=== PATIENT | female | born 1955 | race Caucasian/White ===

== ENCOUNTER 2017-12-06 08:00 | Outpatient (CLI) | payer BC, OTHER | END 2017-12-06 08:01 | disposition home or self-care (01) | LOC: LAB.R 08:00 | PROVIDERS: ATTEND Obstetrics & Gynecology | DX: L90.0 Lichen sclerosus et atrophicus (principal) | CPT/HCPCS: 87480; 87510; 87660 ==

== ENCOUNTER 2018-02-11 08:00 | Outpatient (CLI) | payer BC, OTHER | END 2018-02-11 08:01 | disposition home or self-care (01) | LOC: LAB.R 08:00 | PROVIDERS: ATTEND Obstetrics & Gynecology | DX: N76.3 Subacute and chronic vulvitis (principal) | CPT/HCPCS: 87480; 87510; 87660 ==

== ENCOUNTER 2020-11-18 16:56 | Outpatient (CLI) | payer MEDICARE, OTHER | END 2020-11-18 16:57 | disposition home or self-care (01) | LOC: COV 16:56 | PROVIDERS: ATTEND Family Medicine | DX: R50.9 Fever, unspecified (principal); R05 Cough; R06.02 Shortness of breath; M79.10 Myalgia, unspecified site; R53.83 Other fatigue; J34.89 Other specified disorders of nose and nasal sinuses; R11.0 Nausea; Z20.822 Contact with and (suspected) exposure to COVID-19 ==

== ENCOUNTER 2021-11-01 13:57 | Outpatient (CLI) | payer OTHER, MEDICARE | END 2021-11-01 13:58 | disposition critical access hospital (66) | LOC: EMS 13:57 | DX: M54.2 Cervicalgia (principal); S61.216A Laceration without foreign body of right little finger without damage to nail, initial encounter; V43.53XA Car driver injured in collision with pick-up truck in traffic accident, initial encounter; Y92.413 State road as the place of occurrence of the external cause | CPT/HCPCS: A0425; A0429 ==

== ENCOUNTER 2021-11-01 14:12 | Emergency (ER) | payer MEDICARE, OTHER ==
[2021-11-01 14:23] VITALS: BP 161/91
[2021-11-01] MEDS ORDERED: TETANUS/DIPHTHERIA/PERTUSSIS 0.5 ML SYRINGE IM ONE (14:42)
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
[2021-11-01] MEDS ORDERED: IOVERSOL 320 100 ML VIAL IVP ONE ×2 (14:52→16:16)
[2021-11-01 14:58] LABS: BASOPHILS % (AUTO) 0.4 %; EOSINOPHILS # (AUTO) 0.3 10^3/uL (0.0-0.7); EOSINOPHILS % (AUTO) 2.8 %; HCT - HEMATOCRIT 42.1 % (37.0-47.0); HGB - HEMOGLOBIN 14.2 g/dL (12.0-16.0); LYMPHOCYTES # (AUTO) 2.4 10^3/uL (1.5-3.5); LYMPHOCYTES % (AUTO) 26.5 %; MEAN CORPUSCULAR HEMOGLOBIN 29.8 pg (27.0-31.0); MEAN CORPUSCULAR HGB CONC 33.7 g/dL (32.0-36.0); MEAN CORPUSCULAR VOLUME 88.3 fL (81.0-99.0); MEAN PLATELET VOLUME 9.4 fL (7.9-10.8); MONOCYTES # (AUTO) 0.5 10^3/uL (0.0-1.0); MONOCYTES % (AUTO) 5.7 %; NEUTROPHILS # (AUTO) 5.8 10^3/uL (1.5-6.6); NEUTROPHILS % (AUTO) 63.5 %; PLT - PLATELET COUNT 237 10^3/uL (130-450); RED BLOOD COUNT 4.77 10^6/uL (4.20-5.40); RED CELL DISTRIBUTION WIDTH 13.2 % (12.0-15.0); WHITE BLOOD COUNT 9.1 x10^3/uL (4.8-10.8)
[2021-11-01 15:07] LABS: INR 1.1 (0.8-1.2); PT - PROTHROMBIN TIME 12.7 secs (9.9-12.6)
[2021-11-01 15:12] LABS: ALBUMIN 4.3 g/dL (3.2-5.5); ALBUMIN/GLOBULIN RATIO 1.3 (1.0-2.2); BILIRUBIN,TOTAL 0.7 mg/dL (0.2-1.0); CALCIUM 9.3 mg/dL (8.5-10.3); CREATININE 0.8 mg/dL (0.4-1.0); POTASSIUM 3.6 mmol/L (3.5-5.0); TOTAL PROTEIN 7.5 g/dL (6.7-8.2)
[2021-11-01 15:15] LABS: PARTIAL THROMBOPLASTIN TIME 29.4 secs (24.9-33.3)
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
[2021-11-01] MEDS ORDERED: ceFAZolin 2 GM in SODIUM CHLORIDE 0.9% 100ML 100 ML IV STA (15:34)
[2021-11-01] MEDS ORDERED: MORPHINE 2 MG/ML CARPUJECT IVP STA (15:34)
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
[2021-11-01] MEDS ORDERED: SODIUM CHLORIDE 0.9% 1,000 ML IV STA (18:36)
[2021-11-01 19:20] LABS: B. PARAPERTUSSIS- RESP PCR PAN NOT DETECTED; B. PERTUSSIS- RESP PCR PANEL NOT DETECTED; C. PNEUMONIAE- RESP PCR PANEL NOT DETECTED; CORONAVIRUS 229E-RESP PCR NOT DETECTED; CORONAVIRUS HKU1-RESP PCR NOT DETECTED; CORONAVIRUS NL63-RESP PCR NOT DETECTED; CORONAVIRUS OC43-RESP PCR NOT DETECTED; HUMAN METAPNEUMOVIRUS NOT DETECTED; INFLUENZA A- RESP PCR PANEL NOT DETECTED; INFLUENZA B - RESP PCR PANEL NOT DETECTED; M. PNEUMONIAE- RESP PCR PANEL NOT DETECTED; PARAINFLUENZA VIRUS 1 NOT DETECTED; PARAINFLUENZA VIRUS 2 NOT DETECTED; PARAINFLUENZA VIRUS 3 NOT DETECTED; PARAINFLUENZA VIRUS 4 NOT DETECTED; RHINOVIRUS/ENTEROVIRUS NOT DETECTED; RSV- RESP PCR PANEL NOT DETECTED; SARS-CoV-2 -RESP PCR PANEL NOT DETECTED
== END 2021-11-01 19:40 | disposition short-term general hospital (02) ==
LOC: EDUNIT# → ED 14:12
DX: S62.92XB Unspecified fracture of left hand, initial encounter for open fracture (principal); S80.212A Abrasion, left knee, initial encounter; V43.53XA Car driver injured in collision with pick-up truck in traffic accident, initial encounter; Z20.822 Contact with and (suspected) exposure to COVID-19; R53.1 Weakness; Z23 Encounter for immunization; Z71.85 Encounter for immunization safety counseling
CPT/HCPCS: 36415; 70450; 71260; 72125; 73130; 74177; 80053; 83690; 85025; 85610; 85730; 87631; 90471; 90715; 96374; 96375; 99285; Q9967; 0202U

== ENCOUNTER 2021-11-01 19:27 | Outpatient (CLI) | payer OTHER, MEDICARE | END 2021-11-01 19:28 | disposition short-term general hospital (02) | LOC: EMS 19:27 | PROVIDERS: ATTEND Emergency Medicine | DX: S62.91XB Unspecified fracture of right hand, initial encounter for open fracture (principal); V49.60XA Unspecified car occupant injured in collision with unspecified motor vehicles in traffic accident, initial encounter | CPT/HCPCS: A0425; A0428 ==

== ENCOUNTER 2023-01-30 09:49 | Outpatient (CLI) | payer MEDICARE, OTHER ==
--- NOTE | 2023-01-30 10:32 | Sleep Patient Instructions ---
Sleep Center Visit Summary - Patient Visit Information Reason for Visit: Initial consult for sleep disordered breathing and other sleep issues. - Patient Instructions Instructions Attached: Sleep Clinic Visit, Sleep Study Additional Instructions: You will be completing a sleep study, either an in-lab polysomnography (PSG) or home sleep study (HST). You will follow-up in the sleep care office after the sleep study is completed to hear the results and talk about therapy, if needed. You will be called by our office staff to schedule this appointment, but you may contact us with any questions. - Clinic Information Contact: [facility] [address] [place] [address] [email or web address] T: [phone]
--- NOTE | 2023-01-30 10:38 | SLEEP CARE CONSULTATION ---
Information from patient questionnaire entered by Mery Roth. I have reviewed and concur with the information entered by Mery Roth. This document represents the service I personally performed and the decisions made by me, Annia Tellez ARNP. History of Present Illness Service Date and Time: 01/30/2023 0949 Reason for Visit: New patient Chief Complaint: reports: Other (SENT BY DENADRE DURAN DIAGNOSED AFIB AND I AM A VERY LITE SLEEPER) Usual bedtime: 830-9PM Time it takes to fall asleep: 30-60MIN Snores at night: No Observed to quit breathing while asleep: No Sleeps alone due to snoring: Yes ('s snoring) Number of times waking at night: 1 Reasons for waking at night: reports: Bathroom, Other (WIDE AWAKE). denies: Choking, Snoring, Gasping for air Toss, Turn, or Twitch while sleeping: No Recalls having dreams: Yes Usually gets out of bed at: 0530 Feels refreshed in the morning: Yes Morning headache: Yes (1 x a week but has neck/spine issues) Sleepy or fatigued during the day: Yes Ever fallen asleep while driving: No Takes day naps: No Dreams during day naps: No Prior sleep studies: No Additional HPI information: I had the pleasure of seeing MARTINA LIMON today regarding the pos sibility of her having a sleep disorder. Her current complaints are not sleeping a lot (5-6 hours a night) and diagnosed with atrial fibrillation. She states she wakes up feeling refreshed. She does not snore, according to late . She states she can fall asleep in about an hour. She does have nights that ruminating/racing thoughts will keep her up but not every night. She does have some daytime fatigue but feels this is connected to her heart medications. She has been under a lot of stress in the last few years with her 's cancer diagnosis and then his a couple years ago. She is now retired and her stress is reduced. She has a night time routine of taking a shower and then reading. Some nights she may use a sleep aid if her racing thoughts are keeping her awake. She only takes a 1/2 tablet of lorazepam on those nights and only 1-2 nights a week. - Parasomnia Symptoms Ever been unable to move upon waking from sleep: No Walks in sleep: No Talks in sleep: No Ever acted out dreams in sleep: No Ever felt weak in the knees when startled or emotional: No Bothered by creepy, crawly, restless sensations in legs: No Problems with memory or concentration: No Subjective Initial Nickerson Sleepiness Scale score: 3 (01/21/23) Past Medical History Past Medical History: reports: Hypertension, Arthritis (RA), Coronary Heart Disease, Arrythmia (atrial fibrillation), Anxiety Social History The patient's occupation is a RE. Patient is Single and lives in . Have you smoked in the past 12 months: No Alcohol use: No Caffeine use: No Family History Family history of sleep disordered breathing: Yes Family Hx Sleep Apnea: Father: Snoring (SON), Sleep apnea - Untreated, Sibling: Snoring, Sleep apnea - Untreated, Other: Snoring, Sleep apnea - Treated (SON) Allergies and Home Medications Known drug allergies: Yes (as listed) Drug allergies reviewed: Yes Home medication list reviewed: Yes Allergy and home medication list: Allergies methylprednisolone [From Medrol] Allergy (Verified 01/29/23 13:40) Unknown prednisone Allergy (Verified 01/29/23 13:40) Cramps Sulfa (Sulfonamide Antibiotics) Allergy (Verified 01/29/23 13:40) Rash codeine [Codeine] Adverse Reaction (Intermediate, Verified 01/29/23 13:40) Headache erythromycin base [Erythromycin Base] Adverse Reaction (Intermediate, Verified 01/29/23 13:40) swollen eyelids sulfamethoxazole [From Septra] Adverse Reaction (Intermediate, Verified 01/29/23 13:40) mouth blisterd trimethoprim [From Septra] Adverse Reaction (Intermediate, Verified 01/29/23 13:40) mouth blisterd Medications: Metroprolol 25 mg daily Eliquis 5 mg bid Flecanide 50 mg bid Lorazapam 1/2 tablet, prn sleep (maybe once a week) Review of Systems Weight gain over past 5 years: 30 lbs Cardiovascular: reports: high blood pressure, palpitations, irregular heart rate or pulse Respiratory: reports: shortness of breath Gastrointestinal: denies: heartburn Neurological: reports: headaches, gait or balance problems Psychiatric: reports: anxiety Ear/Nose/Throat: reports: nasal congestion, sinus problems, dry mouth/throat. denies: tonsillectomy Endocrine: reports: too hot or cold Musculoskeletal: reports: joint pain, neck pain, back pain, joint swelling Immunologic: reports: allergies to food or environment Physical Exam Vital signs obtained and entered by: MERY Quinones MA Blood Pressure: 120/62 (LEFT ARM) Cuff size: regular Heart Rate: 65 O2 Saturation: 97 Height: 5 ft 6 in Weight: 198 lb 9.6 oz Body Mass Index: 32.0 BMI Classification: Obese Neck circumference: 15 Mouth and throat: normal Soft palate: normal Hard palate: normal Uvula: normal Uvula visualization: 100% Mallampati Class I Tongue: enlarged in size with teeth selby on lateral edges Tonsils: small Neck: normal w/o lymphadenopathy or thyromegaly Heart: regular rate and rhythm Lungs: clear bilaterally Impression and Plan 1. Suspected Obstructive Sleep Apnea-Hypopnea Syndrome, as suggested by a history of hypertension,fatigue and atrial fibrillation. Narrow oropharynx and obesity are common predisposing factors for obstructive sleep apnea-hypopnea syndrome. I recommend proceeding to polysomnography to confirm the diagnosis and to assess severity. If the patient has significant sleep disordered breathing, a manual CPAP titration study will also be performed to find the optimal treatment pressure. I informed the patient of what the sleep studies involve and after some discussion, obtained agreement to proceed. The pathophysiology of obstructive sleep apnea-hypopnea syndrome was discussed with the patient and health risks of cardiovascular and cerebrovascular disease if not treated. Risks of drowsy driving discussed in detail and patient advised to avoid long distance driving and to loin puller at the first sign of drowsiness. Patient agreed to plan. * Schedule polysomnography +- manual CPAP titration study and return in 1-2 weeks after the study to discuss result and initiate therapy. * Avoid long distance driving or driving when feeling sleepy. * Avoid alcohol, sedative and muscle relaxant around bedtime. * Attempt to lose weight. * Review instructions provided by trained office staff on how to prepare for the sleep study. * Return for follow-up after sleep study completed. Counseling Topics: Weight loss health impact Visit Type: In Office Time Spent with Patient (minutes): 31 Provider Statement: I spent 100% of the Face to Face Visit with the patient with greater than 50% spent counseling the patient and coordination of care.
[2023-01-30 10:39] VITALS: BP 120/62
== END 2023-01-30 09:50 | disposition home or self-care (01) ==
LOC: SC 09:49
PROVIDERS: ATTEND Nurse Practitioner Family
DX: R53.83 Other fatigue (principal); I48.91 Unspecified atrial fibrillation; I51.9 Heart disease, unspecified; I10 Essential (primary) hypertension; E66.9 Obesity, unspecified; Z68.32 Body mass index [BMI] 32.0-32.9, adult
CPT/HCPCS: 99203; G0463; 99212

== ENCOUNTER 2023-02-22 19:36 | Outpatient (CLI) | payer MEDICARE, OTHER | END 2023-02-22 19:37 | disposition home or self-care (01) | LOC: SC 19:36 | PROVIDERS: ATTEND Nurse Practitioner Family | DX: G47.33 Obstructive sleep apnea (adult) (pediatric) (principal); G47.61 Periodic limb movement disorder; E66.9 Obesity, unspecified; Z68.32 Body mass index [BMI] 32.0-32.9, adult | CPT/HCPCS: 95810 ==

== ENCOUNTER 2023-03-08 15:23 | Outpatient (CLI) | payer MEDICARE, OTHER ==
--- NOTE | 2023-03-08 16:26 | SLEEP CARE CONSULTATION ---
Information from patient questionnaire entered by Mery Roth. I have reviewed and concur with the information entered by Mery Roth. This document represents the service I personally performed and the decisions made by , Annia Tellez ARNP. History of Present Illness Service Date and Time: 03/08/2023 1523 Initial [place] Sleepiness Scale score: 3 (01/21/23) Current [place] Sleepiness Scale score: 2 (03/08/23) Additional HPI information: MARTINA LIMON returns for follow up and results of the recently performed polysomnography. I explained the pathophysiology behind obstructive sleep apnea. We then spent quite a bit of time discussing different treatment options. For mild obstructive sleep apnea, surgery and oral appliance are alternatives to nasal CPAP therapy but in moderate or severe cases, nasal CPAP is the most effective and reliable treatment. I reviewed the impact of weight changes on sleep apnea and strongly recommended losing weight. After some discussion, the patient will wait until she sees her provider before she decides on starting therapy for her sleep apnea. I advised her that the positive airway pressure would be what I recommended to treat her sleep apnea considering her heart history. Patient was cautioned about risks of drowsy driving until sleepiness symptoms resolve. Sleep Study - Results Type of Sleep Study: Polysomnography (COMPLETED 02/22/23) Prior sleep studies: No Polysomnography/Home Sleep Study results: IMPRESSION: The quality of the study is good. The patient had normal sleep efficiency. The sleep architecture was abnormal for sleep fragmentation and reduced amount of time spent in slow wave sleep (N3). Respiratory monitoring showed mild obstructive sleep apnea-hypopnea (AHI = 13.4) associated with frequent arousals, oxyhemoglobin desaturation and moderate hypoxia ([place] oxygen saturation of 78%). Baseline oxygen saturation was normal. The respiratory events occurred predominantly during REM sleep (supine AHI = 18.9; non-supine = 7.63). Snore was light to moderate in intensity. There was moderate periodic leg movement of sleep not contributing to the sleep fragmentation. Cardiac rhythm was normal sinus rhythm without significant arrhythmia. No abnormal behavior (parasomnia) observed during the night. Allergies and Home Medications Known drug allergies: Yes (as listed) Drug allergies reviewed: Yes Home medication list reviewed: Yes (no changes) Allergy and home medication list: Allergies methylprednisolone [From Medrol] Allergy (Verified 06/22/23 14:30) Unknown prednisone Allergy (Verified 03/07/23 14:30) Cramps Sulfa (Sulfonamide Antibiotics) Allergy (Verified 03/07/23 14:30) Rash codeine [Codeine] Adverse Reaction (Intermediate, Verified 03/07/23 14:30) Headache erythromycin base [Erythromycin Base] Adverse Reaction (Intermediate, Verified 03/07/23 14:30) swollen eyelids sulfamethoxazole [From Septra] Adverse Reaction (Intermediate, Verified 03/07/23 14:30) mouth blisterd trimethoprim [From Septra] Adverse Reaction (Intermediate, Verified 03/07/23 14:30) mouth blisterd Review of Systems Review of systems same as previous: Yes (no changes) Physical Exam Vital signs obtained and entered by: MERY Quinones MA Blood Pressure: 118/68 (LEFT ARM) Cuff size: regular Heart Rate: 56 O2 Saturation: 96 Height: 5 ft 6 in Weight: 198 lb 9.6 oz Body Mass Index: 32.0 BMI Classification: Obese Impression and Plan 1. Obstructive Sleep Apnea-Hypopnea Syndrome, mild, with lowest oxygen saturation of 78%. Positive pressure therapy could benefit hypertension, cardiac disease (CHD), arrhythmia (Afib) and anxiety. After much discussion, I recommended the CPAP machine. She could possibly get enough control of apnea with an oral appliance when sleeping on her side. She voiced understanding and would like to talk to her provider before she makes a decision and starts therapy. I asked her to call after her appointment and let us know and we can get her set up for therapy for her JUSTIN. She agreed with plan. 2. Hypoxemia, moderate, with a [place] oxygen saturation of 78% and 24.2 minutes spent under 90%. Her baseline oxygen saturation was normal with an average oxygen saturation of 91%. 3. Periodic limb movement, moderate, that did not fragment patients sleep. Periodic limb movement of sleep (PLMS) is characterized by episodes of repetitive limb movements that occur during sleep and usually involve the lower limbs. The etiology is unknown. Caffeine can aggravate PLMS and should be avoided. Sleep hygiene methods can also improve sleep as well as lifestyle changes such as regular exercise. Patient was advised that no treatment is needed at this time. If symptoms increase, then further evaluation is indicated. * Patient will call with choice of therapy * Attempt to lose weight. * Avoid alcohol consumption near bedtime. * Avoid supine sleep * The patient is again cautioned about driving until sleepiness completely resolves. * Return follow up dependant upon choice of therapy. Counseling Topics: Weight loss health impact Visit Type: In Office Time Spent with Patient (minutes): 22 Provider Statement: I spent 100% of the Face to Face Visit with the patient with greater than 50% spent counseling the patient and coordination of care.
[2023-03-08 16:30] VITALS: BP 118/68
== END 2023-03-08 15:24 | disposition home or self-care (01) ==
LOC: SC 15:23
PROVIDERS: ATTEND Nurse Practitioner Family
DX: G47.33 Obstructive sleep apnea (adult) (pediatric) (principal); R09.02 Hypoxemia; G47.61 Periodic limb movement disorder; E66.9 Obesity, unspecified; Z68.32 Body mass index [BMI] 32.0-32.9, adult
CPT/HCPCS: 99213; G0463; 99212

== ENCOUNTER 2023-10-10 10:17 | Outpatient (CLI) | payer MEDICARE, OTHER ==
[2023-10-10 10:53] LABS: BILIRUBIN,URINE NEGATIVE (NEGATIVE); GLUCOSE, URINE (UA) NEGATIVE (NEGATIVE); KETONES,URINE (UA) NEGATIVE (NEGATIVE); LEUKOCYTE ESTERASE, URINE NEGATIVE (NEGATIVE); NITRITE,URINE NEGATIVE (NEGATIVE); OCCULT BLOOD,URINE TRACE-INTA (NEGATIVE); PROTEIN,URINE NEGATIVE (NEGATIVE); UROBILINOGEN,URINE 0.2 (NORMAL) E.U./dL (NORMAL)
[2023-10-10 10:54] LABS: CLARITY,URINE CLEAR (CLEAR)
[2023-10-10 11:01] LABS: BACTERIA,URINE Rare /HPF (None Seen); RBC,URINE 0-5 /HPF (0-5); SQUAMOUS EPITHELIAL CELL,UR RARE Squamous (<= Few); WBC,URINE 0-3 /HPF (0-5)
[2023-10-10 13:02] LABS: BACTERIAL VAGINOSIS DNA NEGATIVE (NEGATIVE); CANDIDA GLABRATA DNA NEGATIVE (NEGATIVE); CANDIDA GROUP DNA NEGATIVE (NEGATIVE); CANDIDA KRUSEI DNA NEGATIVE (NEGATIVE); TRICHOMONAS VAGINALIS DNA NEGATIVE (NEGATIVE)
== END 2023-10-10 10:18 | disposition home or self-care (01) ==
LOC: LAB 10:17
PROVIDERS: ATTEND Physician Assistant Medical
DX: N76.0 Acute vaginitis (principal)
CPT/HCPCS: 81001; 81514; 87086

== ENCOUNTER 2023-11-28 11:30 | Outpatient (CLI) | payer MEDICARE, OTHER ==
--- NOTE | 2023-11-28 12:08 | Sleep Patient Instructions ---
Sleep Center Visit Summary - Patient Visit Information Reason for Visit: 8-month follow-up - Patient Instructions Instructions Attached: CPAP Additional Instructions: You are being started on CPAP therapy with pressure setting at 4-15 cmH2O. You will need to call the sleep care office to set up your follow up once you have your CPAP machine to check compliance and response to therapy at that time. You may call the office with any concerns about pressure feeling too low or too much for adjustment, if needed. You should contact DME supplier for any questions or concerns about mask or equipment. Please call office to schedule a follow up appointment in the sleep care office one month after obtaining new device. - Clinic Information Contact: [facility] [address] [place] [address] [email or web address] T: [phone]
--- NOTE | 2023-11-28 12:15 | SLEEP CARE CONSULTATION ---
Information from patient questionnaire entered by Mery Roth. I have reviewed and concur with the information entered by Mery Roth. This document represents the service I personally performed and the decisions made by , Annia Tellez ARNP. History of Present Illness Service Date and Time: 11/28/2023 1130 Previous diagnosis: Mild, Obstructive Sleep Apnea-Hypopnea Syndrome AHI: 13.4 (02/22/2023) Reason for follow up: other (LAST SEEN 02/2023 NEVER CHOSE TREATMENT) Prior sleep studies: No Type of Sleep Study: Polysomnography (COMPLETED 02/22/23) HPI additional information: MARTINA LIMON was diagnosed to have mild, AHI 13.4, obstructive sleep apnea-hypopnea syndrome and returned today in follow-up. Patient never called back with choice of therapy after last seen in February 2023. She returns today to the sleep care office. Sleep Study - Results Type of Sleep Study: Polysomnography (COMPLETED 02/22/23) Prior sleep studies: No Subjective Initial [place] Sleepiness Scale score: 3 (01/21/23) Current [place] Sleepiness Scale score: 2 Allergies and Home Medications Known drug allergies: Yes (as listed) Drug allergies reviewed: Yes Home medication list reviewed: Yes (Metoprolol, Eliquis, Flecanide, Estoral) Allergy and home medication list: Allergies methylprednisolone [From Medrol] Allergy (Verified 11/26/23 13:39) Unknown prednisone Allergy (Verified 11/26/23 13:39) Cramps Sulfa (Sulfonamide Antibiotics) Allergy (Verified 11/26/23 13:39) Rash codeine [Codeine] Adverse Reaction (Intermediate, Verified 11/26/23 13:39) Headache erythromycin base [Erythromycin Base] Adverse Reaction (Intermediate, Verified 11/26/23 13:39) swollen eyelids sulfamethoxazole [From Septra] Adverse Reaction (Intermediate, Verified 11/26/23 13:39) mouth blisterd trimethoprim [From Septra] Adverse Reaction (Intermediate, Verified 11/26/23 13:39) mouth blisterd Review of Systems Review of systems same as previous: No (Ablation for Afib 11/11/23) Physical Exam Vital signs obtained and entered by: ANNIA HOLLOWAY Blood Pressure: 107/72 Cuff size: regular (left arm) Heart Rate: 56 O2 Saturation: 98 Height: 5 ft 6 in Weight: 203 lb 6.4 oz Body Mass Index: 32.8 BMI Classification: Obese Neck circumference: 15 Impression and Plan 1. Obstructive Sleep Apnea-Hypopnea Syndrome, mild. Patient returns today to see if she can be set up on CPAP therapy. She states she had but understood that she needed to call to get set up with the CPAP. She has been being encouraged by her digital marketing specialist to get set up on a CPAP right away. She had a cardiac ablation for atrial fibrillation in October. I would also like to see her set up on CPAP therapy as soon as possible and we will try to see if we can do an APAP trial. Positive pressure therapy could benefit hypertension, cardiac disease and arrhythmia. It has been about 8 months since we last saw her in the office for her sleep study results and she may have to repeat the sleep study if the insurance requires it. She voiced understanding. The patient will be started on nasal autoCPAP therapy with pressure set at 4-15 cmH2O. Compliance guidelines also reviewed. A copy of compliance guidelines will be given for reference at check out. Because the apnea is more severe supine, I instructed to avoid sleeping supine using pillow positioning until able to start CPAP use. 2. Obesity, unspecified. Currently patients BMI is 32.8. Obesity increases the risk of apnea, CPAP pressure requirements and overall health risks especially cardiovascular and diabetes. Thus patient is advised to lose weight. * Nasal auto CPAP therapy, pressure at 4-15 cm H2O. * Attempt to lose weight. * Avoid alcohol consumption near bedtime. * Avoid supine sleep until using CPAP. * The patient is again cautioned about driving until sleepiness completely resolves. * Return one month after CPAP obtained. I will assess response to therapy and compliance at that time. Counseling Topics: Weight loss health impact Prescriptions: Auto CPAP Follow up with Sleep Care in: other (compliance followup) Visit Type: In Office Time Spent with Patient (minutes): 29 Provider Statement: I spent 100% of the Face to Face Visit with the patient with greater than 50% spent counseling the patient and coordination of care.
[2023-11-28 12:18] VITALS: BP 107/72; O2SAT 98
== END 2023-11-28 11:31 | disposition home or self-care (01) ==
LOC: SC 11:30
PROVIDERS: ATTEND Nurse Practitioner Family
DX: G47.33 Obstructive sleep apnea (adult) (pediatric) (principal); E66.9 Obesity, unspecified; Z68.33 Body mass index [BMI] 33.0-33.9, adult
CPT/HCPCS: 99213; G0463; 99212

== ENCOUNTER 2024-01-28 08:35 | Outpatient (CLI) | payer MEDICARE, OTHER ==
--- NOTE | 2024-01-28 09:01 | Sleep Patient Instructions ---
Sleep Center Visit Summary - Patient Visit Information Reason for Visit: First compliance followup - Patient Instructions Additional Instructions: You were here for follow up of CPAP therapy. You will be continued on CPAP therapy with pressure at 10-14 cmH2O. Please let us know if the pressure change is uncomfortable and we can make further adjustments of the pressure. You should follow up with sleep care in 1-2 months. You may contact us sooner for any questions or concerns. - Clinic Information Contact: [facility] [address] [place] [id number] [email or web address] T: [phone]
--- NOTE | 2024-01-28 09:08 | SLEEP CARE CONSULTATION ---
Information from patient questionnaire entered by Ronda Roth. I have reviewed and concur with the information entered by Ronda Roth. This document represents the service I personally performed and the decisions made by me, Annia Tellez ARNP. History of Present Illness Service Date and Time: 01/28/2024 08 Previous diagnosis: Mild, Obstructive Sleep Apnea-Hypopnea Syndrome AHI: 13.4 (02/22/2023) Reason for follow up: first compliance Equipment type: CPAP (RESMED Airsense 10, S/U 12/18/23) Equipment obtained from: [employer] (getting supplies) Mask style: Nasal Mask brand: Respironics (DreamWisp) Backup mask available: Yes (other mask) Last cushion change: 3 days ago Prior sleep studies: No Type of Sleep Study: Polysomnography (COMPLETED 02/22/23) HPI additional information: MARTINA LIMON was diagnosed to have mild, AHI 13.4, obstructive sleep apnea-hypopnea syndrome and returned today for CPAP therapy first compliance follow-up. Sleep Study - Results Type of Sleep Study: Polysomnography (COMPLETED 02/22/23) Prior sleep studies: No CPAP Compliance Data - Data Reviewed with Patient Average duration of nightly device use: 5 HRS 46 MINS Compliance rate %: 100 (12/18/23-01/16/24; 30 days used) Current pressure setting (cmH2O): 4-15 (median 8.6, avg 11.8, max 12.9) Average residual AHI: 2.9 Central apnea: 0.4 Obstructive apnea: 1.9 Hypopnea: 0.5 Average large leak: 1.9 L/min Subjective Patient concerns: reports: aerophagia (occasional), dry mouth, nose, throat (occasional dry mouth). denies: mask discomfort, air blowing in eyes, mask leak noise, condensation in mask/hose, nasal congestion, epistaxis Observed to snore while using device: No Current pressure setting perceived as: comfortable On therapy, patient: reports: awakening more refreshed, being more awake and alert during the day, more rested overall, other (still waking up early and taking 45 nap daily). denies: drowsiness while driving Initial [place] Sleepiness Scale score: 3 (01/21/23) Current [place] Sleepiness Scale score: 1 (01/28/24) Allergies and Home Medications Known drug allergies: Yes (as listed) Drug allergies reviewed: Yes Home medication list reviewed: Yes (no changes) Allergy and home medication list: Allergies methylprednisolone [From Medrol] Allergy (Verified 01/23/24 09:36) Unknown prednisone Allergy (Verified 01/23/24 09:36) Cramps Sulfa (Sulfonamide Antibiotics) Allergy (Verified 01/23/24 09:36) Rash codeine [Codeine] Adverse Reaction (Intermediate, Verified 01/23/24 09:36) Headache erythromycin base [Erythromycin Base] Adverse Reaction (Intermediate, Verified 01/23/24 09:36) swollen eyelids sulfamethoxazole [From Septra] Adverse Reaction (Intermediate, Verified 01/23/24 09:36) mouth blisterd trimethoprim [From Septra] Adverse Reaction (Intermediate, Verified 01/23/24 09:36) mouth blistered Review of Systems Review of systems same as previous: No (HEART ABLATION 10/2023) Physical Exam Vital signs obtained and entered by: RONDA Quinones MA Blood Pressure: 145/77 (RIGHT ARM) Cuff size: regular Heart Rate: 65 O2 Saturation: 98 Height: 5 ft 6 in Weight: 205 lb 12.8 oz Body Mass Index: 33.2 BMI Classification: Obese Impression and Plan 1. Obstructive Sleep Apnea-Hypopnea Syndrome, mild, with good treatment compliance and good apnea control. On CPAP therapy, the patient has had good energy and is more rested overall. She does not feel like her sleep is different. She is still waking up early, but has since she was very young. The patients pressure will be changed to autoCPAP 10-14 cmH20 to reflect pressure being used. Patient advised to contact me if pressure change is uncomfortable so that it can be adjusted. Goals for apnea control discussed. Patient's apnea severity and rationale for treatment to reduce apnea, improve sleep quality and reduce cardiovascular and cerebrovascular events was reviewed. I also reviewed the benefit of consistent device use of CPAP for hypertension, cardiac disease, arrhythmia. 2. Obesity, unspecified. Currently patients BMI is 33.2. Obesity increases the risk of apnea, CPAP pressure requirements and overall health risks especially cardiovascular and diabetes. Thus patient is advised to lose weight. * Change auto CPAP pressure to 10-14 cmH2O * Notify me if snoring with mask or feeling that the pressure is too much or too little * Attempt to lose weight * Call this office if any problems using CPAP * Return for follow up in 1-2 months, or sooner if concerns arise Adjust device pressure to (cmH2O): 10-14 Counseling Topics: Spare mask, Weight loss health impact Follow up with Sleep Care in: 1-2 months Visit Type: In Office Time Spent with Patient (minutes): 23 Provider Statement: I spent 100% of the Face to Face Visit with the patient with greater than 50% spent counseling the patient and coordination of care.
[2024-01-28 09:15] VITALS: BP 145/77; O2SAT 98
== END 2024-01-28 08:36 | disposition home or self-care (01) ==
LOC: SC 08:35
PROVIDERS: ATTEND Nurse Practitioner Family
DX: G47.33 Obstructive sleep apnea (adult) (pediatric) (principal); E66.9 Obesity, unspecified; Z68.33 Body mass index [BMI] 33.0-33.9, adult
CPT/HCPCS: 99213; G0463; 99212

== ENCOUNTER 2024-03-24 08:29 | Outpatient (CLI) | payer MEDICARE, OTHER ==
--- NOTE | 2024-03-24 09:04 | Sleep Patient Instructions ---
Sleep Center Visit Summary - Patient Visit Information Reason for Visit: 2-month follow-up - Patient Instructions Additional Instructions: You were here for follow up of CPAP therapy. You will be continued on CPAP therapy with pressure at 5-15 cmH2O. Please let us know if the pressure change is uncomfortable and we can make further adjustments of the pressure. You should follow up with sleep care in 3 months. You may contact us sooner for any questions or concerns. - Clinic Information Contact: [facility] [address] [place] [id number] [email or web address] T: [phone]
--- NOTE | 2024-03-24 09:06 | SLEEP CARE CONSULTATION ---
Information from patient questionnaire entered by Mery Roth. I have reviewed and concur with the information entered by Mery Roth. This document represents the service I personally performed and the decisions made by , Annia Tellez ARNP. History of Present Illness Service Date and Time: 03/24/2024828 Previous diagnosis: Mild, Obstructive Sleep Apnea-Hypopnea Syndrome AHI: 13.4 (02/22/2023) Reason for follow up: other (2 MONTH F/U) Equipment type: CPAP (RESMED Airsense 10, S/U 12/18/23) Equipment obtained from: [employer] ([employer]) Mask style: Nasal Mask brand: Respironics (Dreamwisp) Backup mask available: No Last cushion change: last night Prior sleep studies: No Type of Sleep Study: Polysomnography (COMPLETED 02/22/23) HPI additional information: MARTINA LIMON was diagnosed to have mild, AHI 13.4, obstructive sleep apnea-hypopnea syndrome and returned today for CPAP therapy two month after pressure change follow-up. Sleep Study - Results Type of Sleep Study: Polysomnography (COMPLETED 02/22/23) Prior sleep studies: No CPAP Compliance Data - Data Reviewed with Patient Average duration of nightly device use: 5 HRS 27 MINS Compliance rate %: 100 (01/20/24-03/19/24; 60/60 days used) Current pressure setting (cmH2O): 10-14 (median 11.8, avg 13.5, max 13.9) Average residual AHI: 6.9 Central apnea: 5.7 Obstructive apnea: 0.6 Average large leak: 8 L/min Subjective Patient concerns: reports: nasal congestion, dry mouth, nose, throat (dry mouth), other (machine shows leakage). denies: aerophagia, mask discomfort, air blowing in eyes, mask leak noise, condensation in mask/hose, epistaxis Observed to snore while using device: No Current pressure setting perceived as: comfortable On therapy, patient: reports: sleeping better, awakening more refreshed, being more awake and alert during the day, more rested overall. denies: drowsiness while driving Initial [place] Sleepiness Scale score: 3 (01/21/23) Current [place] Sleepiness Scale score: 2 Allergies and Home Medications Known drug allergies: Yes (as listed) Drug allergies reviewed: Yes Home medication list reviewed: Yes (no changes) Allergy and home medication list: Allergies methylprednisolone [From Medrol] Allergy (Verified 03/20/24 10:23) Unknown prednisone Allergy (Verified 03/20/24 10:23) Cramps Sulfa (Sulfonamide Antibiotics) Allergy (Verified 03/20/24 10:23) Rash codeine [Codeine] Adverse Reaction (Intermediate, Verified 03/20/24 10:23) Headache erythromycin base [Erythromycin Base] Adverse Reaction (Intermediate, Verified 03/20/24 10:23) swollen eyelids sulfamethoxazole [From Septra] Adverse Reaction (Intermediate, Verified 03/20/24 10:23) mouth blisterd trimethoprim [From Septra] Adverse Reaction (Intermediate, Verified 03/20/24 10:23) mouth blisterd Review of Systems Review of systems same as previous: Yes (no changes) Physical Exam Vital signs obtained and entered by: ANNIA PAZ-Joni Blood Pressure: 128/75 Cuff size: long (right arm) Heart Rate: 66 O2 Saturation: 96 Height: 5 ft 6 in Weight: 203 lb 9.6 oz Body Mass Index: 32.8 BMI Classification: Obese Impression and Plan 1. Obstructive Sleep Apnea-Hypopnea Syndrome, mild, with good treatment compliance and fair apnea control with elevated residual AHI. On CPAP therapy, the patient has better sleep quality and is more rested overall. She feels the pressure is causing more leak noises since pressure change. The patients pressure will be changed to autoCPAP 5-15 cmH20 for elevation of residual AHI. P atient advised to contact me if pressure change is uncomfortable so that it can be adjusted. Goals for apnea control discussed. Patient's apnea severity and rationale for treatment to reduce apnea, improve sleep quality and reduce cardiovascular and cerebrovascular events was reviewed. I also reviewed the benefit of consistent device use of CPAP for hypertension, cardiac disease. 2. Obesity, unspecified. Currently patients BMI is 32.8. Obesity increases the risk of apnea, CPAP pressure requirements and overall health risks especially cardiovascular and diabetes. Thus patient is advised to lose weight. * Change auto CPAP pressure to 5-15 cmH2O * Notify me if snoring with mask or feeling that the pressure is too much or too little * Attempt to lose weight * Call this office if any problems using CPAP * Return for follow up in 3 months, or sooner if concerns arise Adjust device pressure to (cmH2O): 5-15 Counseling Topics: Spare mask, Weight loss health impact Follow up with Sleep Care in: 3 months Visit Type: In Office Time Spent with Patient (minutes): 21 Provider Statement: I spent 100% of the Face to Face Visit with the patient with greater than 50% spent counseling the patient and coordination of care.
[2024-03-24 09:12] VITALS: BP 128/75; O2SAT 96
== END 2024-03-24 08:30 | disposition home or self-care (01) ==
LOC: SC 08:29
PROVIDERS: ATTEND Nurse Practitioner Family
DX: G47.33 Obstructive sleep apnea (adult) (pediatric) (principal); E66.9 Obesity, unspecified; Z68.32 Body mass index [BMI] 32.0-32.9, adult
CPT/HCPCS: 99213; G0463; 99212

== ENCOUNTER 2024-06-10 08:17 | Outpatient (CLI) | payer MEDICARE, OTHER ==
--- NOTE | 2024-06-10 08:57 | Sleep Patient Instructions ---
Sleep Center Visit Summary - Patient Visit Information Reason for Visit: 3-month follow-up - Patient Instructions Additional Instructions: You were here for follow up of CPAP therapy. You will be continued on CPAP therapy with pressure at 5-14 cmH2O. Please let us know if the pressure change is uncomfortable and we can make further adjustments of the pressure. You should follow up with sleep care in 6 months. You may contact us sooner for any questions or concerns. - Clinic Information Contact: [facility] [address] [place] [id number] [email or web address] T: [phone]
[2024-06-10 09:01] VITALS: BP 125/71; O2SAT 98
--- NOTE | 2024-06-10 09:01 | SLEEP CARE CONSULTATION ---
Information from patient questionnaire entered by Hattie Avendaño. I have reviewed and concur with the information entered by Hattie Avendaño. This document represents the service I personally performed and the decisions made by , Annia Tellez ARNP. History of Present Illness Service Date and Time: 06/10/2024816 Previous diagnosis: Mild, Obstructive Sleep Apnea-Hypopnea Syndrome AHI: 13.4 (02/22/2023) Reason for follow up: three month (3-Month F/U -Pressure change) Equipment type: CPAP (RESMED Airsense 10, S/U 12/18/23) Equipment obtained from: [employer] (getting supplies) Mask style: Nasal Mask brand: Respironics ([employer]) Backup mask available: Yes Last cushion change: 1 week Prior sleep studies: No Type of Sleep Study: Polysomnography (COMPLETED 02/22/23) HPI additional information: MARTINA LIMON was diagnosed to have mild, AHI 13.4, obstructive sleep apnea-hypopnea syndrome and returned today for CPAP therapy three month follow- up. Sleep Study - Results Type of Sleep Study: Polysomnography (COMPLETED 02/22/23) Prior sleep studies: No CPAP Compliance Data - Data Reviewed with Patient Average duration of nightly device use: 6 h 20 min Compliance rate %: 92 (03/10/24-06/07/24; 85/90 days used) Current pressure setting (cmH2O): 5 - 15 Average residual AHI: 4.1 Central apnea: 0.3 Obstructive apnea: 3.4 Hypopnea: 0.3 Average large leak: 4.7 L/min Subjective Missed days of use due to: reports: illness (04/06 - 04/07), travel (04/22 - 04/23, 05/28 - ) Patient concerns: reports: aerophagia, mask discomfort, condensation in mask/hose, nasal congestion (sinus issues), dry mouth, nose, throat. denies: air blowing in eyes, mask leak noise, epistaxis Observed to snore while using device: No Current pressure setting perceived as: too high (?) On therapy, patient: reports: sleeping better, awakening more refreshed, being more awake and alert during the day, more rested overall. denies: drowsiness while driving Initial [place] Sleepiness Scale score: 3 (01/21/23) Current [place] Sleepiness Scale score: 1 (06/10/24) Allergies and Home Medications Known drug allergies: Yes (as listed) Drug allergies reviewed: Yes Home medication list reviewed: Yes (no changes) Allergy and home medication list: Allergies methylprednisolone [From Medrol] Allergy (Verified 03/20/24 10:23) Unknown prednisone Allergy (Verified 03/20/24 10:23) Cramps Sulfa (Sulfonamide Antibiotics) Allergy (Verified 03/20/24 10:23) Rash codeine [Codeine] Adverse Reaction (Intermediate, Verified 03/20/24 10:23) Headache erythromycin base [Erythromycin Base] Adverse Reaction (Intermediate, Verified 03/20/24 10:23) swollen eyelids sulfamethoxazole [From Septra] Adverse Reaction (Intermediate, Verified 03/20/24 10:23) mouth blisterd trimethoprim [From Septra] Adverse Reaction (Intermediate, Verified 03/20/24 10:23) mouth blisterd Review of Systems Review of systems same as previous: Yes (no changes) Physical Exam Vital signs obtained and entered by: Annia Flood NP Blood Pressure: 125/71 Cuff size: regular (right arm) Heart Rate: 63 O2 Saturation: 98 Height: 5 ft 6 in Weight: 208 lb Body Mass Index: 33.5 BMI Classification: Obese Impression and Plan 1. Obstructive Sleep Apnea-Hypopnea Syndrome, mild, with good treatment compliance and good apnea control. On CPAP therapy, the patient has better sleep quality and is more rested overall. She has been getting some bloating feeling in the morning, couple mornings it was very hard until she was able to burp enough air out of her stomach. To reduce symptoms of aerophagia, the CPAP pressure will be reduced to 5-14 cmH2O. Patient advised to contact me if this does not reduce symptoms or if pressure change uncomfortable. She has made some adjustments and is getting less mask leaks. It seems to be more due to the old headset because her leaks have reduced since changing the headset. She has been able to adjust her humidity to reduce nasal congestion for her chronic sinus issues. Overall she seems to be adapting well to the CPAP. She has significant improvement of her sleep apnea and is comfortable with CPAP use. Patient's apnea severity and rationale for treatment to reduce apnea, improve sleep quality and reduce cardiovascular and cerebrovascular events was reviewed. I also reviewed the benefit of consistent device use of CPAP for hypertension, cardiac disease. 2. Obesity, unspecified. Currently patients BMI is 33.5. Obesity increases the risk of apnea, CPAP pressure requirements and overall health risks especially cardiovascular and diabetes. Thus patient is advised to lose weight. * Change auto CPAP pressure to 5-14 cmH2O * Notify me if snoring with mask or feeling that the pressure is too much or too little * Attempt to lose weight * Call this office if any problems using CPAP * Return for follow up in 6 months, or sooner if concerns arise Adjust device pressure to (cmH2O): 5-14 Counseling Topics: Weight loss health impact Follow up with Sleep Care in: 6 months Visit Type: In Office Time Spent with Patient (minutes): 26 Provider Statement: I spent 100% of the Face to Face Visit with the patient with greater than 50% spent counseling the patient and coordination of care.
== END 2024-06-10 08:18 | disposition home or self-care (01) ==
LOC: SC 08:17
PROVIDERS: ATTEND Nurse Practitioner Family
DX: G47.33 Obstructive sleep apnea (adult) (pediatric) (principal); E66.9 Obesity, unspecified; Z68.33 Body mass index [BMI] 33.0-33.9, adult
CPT/HCPCS: 99213; G0463; 99212